=== PATIENT | male | born 1940 | race Caucasian/White ===

== ENCOUNTER → 2018-04-29 | Outpatient (CLI) | payer MEDICARE ==
[~2018-04-29] MED LIST: DUTA0.5C PO
[2018-04-29 15:55] LABS: MEAN CORPUSCULAR HEMOGLOBIN 32.6 pg (27.5-34.5); MEAN CORPUSCULAR HGB CONC 33.2 g/dL (33.2-36.2); MEAN CORPUSCULAR VOLUME 98.2 fL (81-97); MEAN PLATELET VOLUME 10.5 fL (7.4-10.4); PLATELET COUNT 263 x10^3/uL (130-400); RED BLOOD COUNT 4.31 x10^6/uL (4.38-5.82); RED CELL DISTRIBUTION WIDTH 16.3 % (9.4-14.8)
[2018-04-29 16:03] LABS: MD YES
[2018-04-29 16:31] LABS: BAND#(MANUAL) 1.55 x10^3/uL; BANDS%(MANUAL) 8 % (0-7); BASOS#(MANUAL) 0.19 x10^3/uL (0-0.1); BASOS% (MANUAL) 1 % (0-1); EOS#(MANUAL) 0.19 x10^3/uL (0.0-0.4); EOS% (MANUAL) 1 % (1-7); LYMPH#(MANUAL) 4.07 x10^3/uL (1-3.4); LYMPHS% (MANUAL) 21 % (22-44); SEGS% (MANUAL) 34 % (42-75)
[2018-04-29 16:33] LABS: MONOS#(MANUAL) 6.01 x10^3/uL (0.3-2.7); REACTIVE LYMPHS # (MANUAL) 0.78 x10^3/uL (0-0); REACTIVE LYMPHS % (MANUAL) 4 % (0-0)
[2018-04-29 16:35] LABS: <PLATELET ESTIMATE> ADEQUATE; <PLT MORPHOLOGY> NORMAL PLT MORPH; <RBC MORPHOLOGY> NORMAL
[2018-04-29 16:36] LABS: MONOS% (MANUAL) 31 % (2-9)
== END | disposition home or self-care (01) ==
LOC: CFH 12:28
PROVIDERS: ATTEND Family Medicine
DX: D72.829 Elevated white blood cell count, unspecified (principal)
CPT/HCPCS: 36415; 85025

== ENCOUNTER 2020-12-28 09:27 | Emergency (ER) | payer MEDICARE ==
[~2020-12-28] VITALS: Ht 172.7 cm; Wt 76.1 kg
[~2020-12-28 09:27] MED LIST changes: +FINA5TAB4 PO; +METF500T17 PO
--- NOTE | 2020-12-28 09:51 | NUR ---
PT A&OX4, RESP EVEN & UNLABORED, SPEECH CLEAR, SKIN WNL. REPORTS ELEVATED BP X 5-6 DAYS. DENIES HX: HTN, RECENT STRESS, RECENT TRAVEL, NO SIGNIFICANT WEIGHT CHANGE. REPORTS PINCHED NERVE IN BACK; TAKES IBUPROFEN 3-4 PER DAY.
--- NOTE | 2020-12-28 09:54 | NUR ---
TOOK "DUAL ACTION IBUPROFEN" (IBUPROFEN W/ ACETAMINOPHEN) AT 0600. LAST ORAL INTAKE: 0800 TODAY.
--- NOTE | 2020-12-28 10:25 | NUR ---
DR LEE AT
--- NOTE | 2020-12-28 10:52 | NUR ---
AWAITING LAB DRAW
--- NOTE | 2020-12-28 11:21 | NUR ---
RESTING QUIETLY ON GURNEY. CARDIAC MONITORING CONTINUING: NSR.
[2020-12-28 11:22] LABS: ALBUMIN 3.9 g/dL (3.4-5.0); ANION GAP 6 mmol/L (5-15); CALCIUM 8.4 mg/dL (8.5-10.1); CHLORIDE 101 mmol/L (98-107); CREATININE 0.82 mg/dL (0.7-1.3)
--- NOTE | 2020-12-28 11:22 | NUR ---
AWAITING LAB RESULTS
[2020-12-28 11:25] LABS: MEAN CORPUSCULAR HEMOGLOBIN 32.2 pg (27.5-34.5); MEAN CORPUSCULAR HGB CONC 33.1 g/dL (33.2-36.2); MEAN PLATELET VOLUME 9.1 fL (7.4-10.4); PLATELET COUNT 270 x10^3/uL (130-400); RED BLOOD COUNT 3.85 x10^6/uL (4.38-5.82); RED CELL DISTRIBUTION WIDTH 15.4 % (9.4-14.8)
[2020-12-28 11:54] LABS: MD YES
[2020-12-28 12:02] LABS: BAND#(MANUAL) 0.92 x10^3/uL; BANDS%(MANUAL) 4 % (0-7); EOS#(MANUAL) 0.23 x10^3/uL (0.0-0.4); EOS% (MANUAL) 1 % (1-7); LYMPH#(MANUAL) 4.16 x10^3/uL (1-3.4); LYMPHS% (MANUAL) 18 % (22-44); MONOS#(MANUAL) 8.32 x10^3/uL (0.3-2.7); MONOS% (MANUAL) 36 % (2-9); REACTIVE LYMPHS # (MANUAL) 0.23 x10^3/uL (0-0); REACTIVE LYMPHS % (MANUAL) 1 % (0-0); SEG#(MANUAL) 9.24 x10^3/uL (1.8-6.8); SEGS% (MANUAL) 40 % (42-75)
[2020-12-28 12:05] LABS: ANISOCYTOSIS 1+; OVALOCYTES 1+; POLYCHROMASIA 1+
[2020-12-28 12:06] LABS: <PLATELET ESTIMATE> ADEQUATE; <PLT MORPHOLOGY> NORMAL PLT MORPH
[2020-12-28 12:30] VITALS: BP 172/89
--- NOTE | 2020-12-28 12:40 | NUR ---
ERP AT BS TO DISCUSS POC
== END 2020-12-28 13:01 | disposition home or self-care (01) ==
LOC: ED 10:04
DX: I10 Essential (primary) hypertension (principal); E11.9 Type 2 diabetes mellitus without complications; R07.9 Chest pain, unspecified
CPT/HCPCS: 36415; 71045; 80048; 82040; 85025; 93005; 99285